=== PATIENT | female | born 1980 | race Caucasian/White ===

== ENCOUNTER 2018-11-15 23:38 | Emergency (ER) | payer MEDICAID ==
[2018-11-16] MEDS: HYDROCODONE/APAP (10/325) TAB PO (00:09)
== END 2018-11-16 02:55 | disposition home or self-care (01) ==
LOC: E/R 23:38
DX: S01.01XA Laceration without foreign body of scalp, initial encounter (principal); S16.1XXA Strain of muscle, fascia and tendon at neck level, initial encounter; S39.012A Strain of muscle, fascia and tendon of lower back, initial encounter; W10.8XXA Fall (on) (from) other stairs and steps, initial encounter; Y92.9 Unspecified place or not applicable
CPT/HCPCS: 70450; 72125; 72131; 81025; 99284-25

== ENCOUNTER 2018-12-05 18:58 | Emergency (ER) | payer MEDICAID ==
[2018-12-05 20:10] LABS: URINE BLOOD (Dip) POC 1+ (NEGATIVE); URINE GLUCOSE (Dip) POC Negative (NEGATIVE); URINE KETONES (Dip) POC 3+ (NEGATIVE); URINE LEUKOCYTE EST (Dip) POC 1+ (NEGATIVE); URINE NITRITE (Dip) POC Negative (NEGATIVE); URINE TOTAL PROTEIN POC 1+ (NEGATIVE)
[2018-12-05] MEDS: LORAZEPAM 2 MG INJ IM (20:36)
[2018-12-05] MEDS: KETOROLAC 30 MG INJ IM (20:36)
== END 2018-12-05 21:21 | disposition home or self-care (01) ==
LOC: FTE 18:58
DX: F41.9 Anxiety disorder, unspecified (principal)
CPT/HCPCS: 81003; 81025; 96372; 99284-25